=== PATIENT | male | born 1970 | race Caucasian/White ===

== ENCOUNTER 2018-10-31 19:27 | Emergency (ER) | payer MEDICAID ==
[~2018-10-31] VITALS: Ht 188 cm; Wt 91.6 kg
[2018-10-31 19:38] VITALS: Ht 188 cm; Wt 91.6 kg
[2018-10-31 22:02] VITALS: BP 122/84
== END 2018-10-31 22:03 | disposition home or self-care (01) ==
LOC: ED 19:27
DX: J02.9 Acute pharyngitis, unspecified (principal); R50.9 Fever, unspecified; R07.89 Other chest pain; R05 Cough

== ENCOUNTER 2018-11-07 15:44 | Inpatient (IN) | payer MEDICAID ==
[~2018-11-07] VITALS: Ht 185.4 cm; Wt 88.5 kg
[2018-11-07 16:47] LABS: BASOPHIL % 0.3 % (0-2)
[2018-11-07 16:50] LABS: PLATELET COUNT 415 x10^3mcL (130-400)
[2018-11-07 17:06] LABS: AMPHETAMINE QUAL UR NONE DETECTED (See below)
[2018-11-07 17:18] LABS: ALKALINE PHOSPHATASE 51 U/L (46-116); ALT/SGPT 21 U/L (16-63); AST/SGOT 7 U/L (15-37); BILIRUBIN TOTAL 0.3 mg/dL (0.20-1.00); CALCIUM 8.6 mg/dL (8.5-10.1); CARBON DIOXIDE 26.9 mmol/L (21-32); CHLORIDE SERUM 96 mmol/L (98-107); CK-MB < 0.5 ng/mL (0-3.6); CREATINE KINASE 59 U/L (39-308); CREATININE SERUM 1.2 mg/dL (0.7-1.3); GFR1 > 60 mL/min; POTASSIUM SERUM 3.9 mmol/L (3.5-5.1); SODIUM SERUM 131 mmol/L (136-145); T4(THYROXINE) 8.4 ug/dL (4.7-13.3)
[2018-11-07 17:20] LABS: ALBUMIN 2.8 g/dL (3.4-5.0)
[2018-11-07 17:22] LABS: GLUCOSE SERUM 702 mg/dL (74-106)
[2018-11-07 18:07] LABS: microscopic required? NO
[2018-11-07 18:14] LABS: UA SPECIFIC GRAVITY <=1.005 (1.005-1.035); urine erythrocyte NEGATIVE (NEGATIVE)
[2018-11-07 19:02] LABS: MAGNESIUM 1.9 mg/dL (1.8-2.4); PHOSPHOROUS 5.1 mg/dL (2.5-4.9)
[2018-11-07 19:06] LABS: CHOLESTEROL/HDL RATIO 6.1
[2018-11-07 20:09] VITALS: BP 124/88
[2018-11-07 20:16] VITALS: Ht 185.4 cm; Wt 88.5 kg
[2018-11-08 05:56] VITALS: BP 124/86
[2018-11-08 06:38] LABS: BASOPHIL % 0.3 % (0-2); CALCIUM 8.4 mg/dL (8.5-10.1); CARBON DIOXIDE 28.2 mmol/L (21-32); CHLORIDE SERUM 103 mmol/L (98-107); CREATININE SERUM 0.7 mg/dL (0.7-1.3); GFR1 > 60 mL/min; GLUCOSE SERUM 237 mg/dL (74-106); MAGNESIUM 1.8 mg/dL (1.8-2.4); PHOSPHOROUS 3.8 mg/dL (2.5-4.9); POTASSIUM SERUM 3.4 mmol/L (3.5-5.1); RED CELL DISTRIBUTION WIDTH 12.2 % (11.5-14.5); SODIUM SERUM 138 mmol/L (136-145)
[2018-11-08 06:41] LABS: PLATELET COUNT 432 x10^3mcL (130-400)
[2018-11-08 08:58] VITALS: BP 115/78
[2018-11-08 17:22] VITALS: BP 127/84
[2018-11-08 20:49] VITALS: BP 119/83
[2018-11-09 05:48] VITALS: BP 105/69
[2018-11-09 06:19] LABS: CALCIUM 8.6 mg/dL (8.5-10.1); CHLORIDE SERUM 100 mmol/L (98-107); CREATININE SERUM 0.8 mg/dL (0.7-1.3); GFR1 > 60 mL/min; GLUCOSE SERUM 252 mg/dL (74-106); PHOSPHOROUS 3.8 mg/dL (2.5-4.9); POTASSIUM SERUM 3.8 mmol/L (3.5-5.1); SODIUM SERUM 136 mmol/L (136-145)
[2018-11-09 06:43] LABS: BASOPHIL % 0.4 % (0-2); PLATELET COUNT 397 x10^3mcL (130-400); RED CELL DISTRIBUTION WIDTH 12.3 % (11.5-14.5)
[2018-11-09 09:00] VITALS: BP 106/66
[2018-11-09] MEDS ORDERED: GLU500 PO (10:47)
[2018-11-09] MEDS ORDERED: LEVAQUIN750 MG PO (13:11)
[2018-11-09 13:36] VITALS: BP 106/66
== END 2018-11-09 15:11 | disposition home or self-care (01) | DRG 720 ==
LOC: ED 15:44 → MU 17:55
PROVIDERS: Emergency Medicine; ADMIT Family Medicine
DX: A41.9 Sepsis, unspecified organism (principal); J96.01 Acute respiratory failure with hypoxia; E43 Unspecified severe protein-calorie malnutrition; E11.65 Type 2 diabetes mellitus with hyperglycemia; J18.9 Pneumonia, unspecified organism; E87.1 Hypo-osmolality and hyponatremia; E83.39 Other disorders of phosphorus metabolism; J04.0 Acute laryngitis; E78.1 Pure hyperglyceridemia; Z68.25 Body mass index [BMI] 25.0-25.9, adult
CPT/HCPCS: 36600; 82962; 83880; J0456; J0696; J1815; J1956; J7030; Q0092; Q9967